=== PATIENT | male | born 1960 | race African-American/Black ===

== ENCOUNTER 2022-01-21 16:32 | Emergency (ER) | payer OTHER, SELFPAY ==
--- NOTE | ~2022-01-21 | CT_ITS ---
EXAMINATION: CT lumbar spine wo con DATE: 01/21/2022 19:52 INDICATION: low back pain, diff urinating . TECHNIQUE: Computed tomography (CT) of the lumbar spine was performed without intravenous contrast. A utomated exposure control and iterative reconstruction technique were employed. The dose-length produ ct was 333.53 mGy-cm. COMPARISON: None. FINDINGS: 5 nonrib-bearing lumbar-type vertebral bodies. Pedicles intact. No pars defect. Trace retro listhesis of L2 on L3. 4 mm anterolisthesis of L4 on L5. Multilevel degenerative disc disease, severe at T11-12, L2-3, and L3-4. Multilevel severe lower lumbar facet arthropathy. Severe central canal st enosis at L4-5. Mild anterior wedge deformities of the lower thoracic and upper lumbar vertebral bodi es, presumably congenital. IMPRESSION: No acute fracture or traumatic malalignment in the lumbar spine. Chronic and degenerative findings de tailed above. Reviewed, dictated and finalized at location K. IMPRESSION: No acute fracture or traumatic malalignment in the lumbar spine. Chronic and de generative findings detailed above.
[2022-01-21 17:02] VITALS: BP 146/95; PULSE 69; RESP 16; TEMP 36.9; O2SAT 100
--- NOTE | 2022-01-21 19:38 | ED.BACK ---
HPI - Back Pain/Injury General Chief Complaint: Back Pain/Injury Stated Complaint: back pain Time Seen by Provider: 01/21/22 19:22 Source: patient Mode of arrival: ambulatory Limitations: no limitations History of Present Illness HPI Narrative: Presents complaints of low back pain with bilateral sciatica that has persisted for over 1 week. States initially started with low back pain with right-sided sciatica. Was evaluated by his primary care provider and given Medrol Dosepak and Flexeril. States developed left sciatica as well as continued right sciatica so called primary care provider and was given hydrocodone. States today he developed difficulty starting and maintaining urinary stream called primary care provider and was sent to the ER for further evaluation. Denies numbness to groin, difficulty or change with BM. Otherwise denies fever, chills or other problems or complaints at this time Related Data Allergies Allergy/AdvReac Type Severity Reaction Status Date / Time No Known Allergies Allergy Unverified 03/24/18 07:32 Review of Systems Review of Systems: CONSTITUTIONAL: Denies fever, chills, or sweats. EYES: Denies visual changes, redness, or discharge. ENT: Denies rhinorrhea, congestion, sore throat, or otalgia. CARDIOVASCULAR: Denies chest pain, palpitations, or edema. RESPIRATORY: Denies cough or dyspnea. GASTROINTESTINAL: Denies abdominal pain, nausea, vomiting, or diarrhea. GENITOURINARY: Denies dysuria or hematuria. SKIN: Denies rash or itching. MUSCULOSKELETAL: Low back pain with bilateral sciatica. joint pain, or myalgia. NEUROLOGIC: Denies headache, numbness, or weakness. PSYCHIATRIC: Denies anxiety or depression. Exam Narrative: GENERAL: Well-appearing, well-nourished, and in no acute distress. Walking with stooped over gait. HEAD: Normocephalic, atraumatic. EYES: PERRLA and EOMI. ENT: Nares clear, no rhinorrhea or epistaxis. Mucous membranes moist. NECK: Supple. CHEST: Clear to auscultation. No respiratory distress. HEART: Regular rate and rhythm. No murmur heard. Normal peripheral pulses. ABDOMEN: Soft, nontender, nondistended, normal active bowel sounds. EXTREMITIES: Normal range of motion. No edema. Musculoskeletal: Tender to palpation low back and bilateral SI joints. Strength intact to lower extremities. SKIN: Warm, dry, no rash. NEURO: No focal deficits. Alert and oriented x3. PSYCH: Normal mood and affect. Course Vital Signs Vital signs: Vital Signs Temperature 36.9 C 01/21/22 17:02 Pulse Rate 69 01/21/22 17:02 Respiratory Rate 16 01/21/22 17:02 Blood Pressure 146/95 H 01/21/22 17:02 Pulse Oximetry 100 01/21/22 17:02 Temperature 36.9 C 01/21/22 17:02 Pulse Rate 69 01/21/22 17:02 Respiratory Rate 16 01/21/22 17:02 Blood Pressure 146/95 H 01/21/22 17:02 Pulse Oximetry 100 01/21/22 17:02 MDM - Back Pain/Injury MDM Narrative Medical decision making narrative: Bladder scan performed by nursing staff with no urinary retention. Discussed CT results with pt and need for F/U with PCP for further evaluation. Lab Data Result diagrams: 01/21/22 20:08 01/21/22 20:08 Labs: Lab Results 01/21/22 01/21/22 01/21/22 Range/Units 20:08 20:08 20:19 WBC 5.9 (4.5-10.0) K/mm3 RBC 5.57 (4.6-6.20) M/mm3 Hgb 15.0 (14.0-18.0) g/dL Hct 47.0 (42.0-52.0) % MCV 84.4 (80-100) fl MCH 26.9 (26-34) pg MCHC 31.9 L (32-36) g/dl RDW 14.1 (11.5-14.5) % Plt Count 225 (150-375) k/mm3 MPV 9.3 (7.4-10.4) fl Immature Gran % (Auto) 0.3 (0-0.5) % Neut % (Auto) 54.9 (45.5-73.1) % Lymph % (Auto) 28.1 (18.3-44.2) % [place] % (Auto) 9.7 H (2.6-8.5) % Eos % (Auto) 6.5 H (0-4.4) % Baso % (Auto) 0.5 (0.2-1.2) % Lymph # (Auto) 1.65 (0.9-3.2) K/mm3 [place] # (Auto) 0.6 (0.1-0.6) K/mm3 Eos # (Auto) 0.4 H (0-0.3) K/mm3 Baso # (Auto) 0.0 (0.0-0.1) K/mm3 Abs Immat
[2022-01-21 20:14] LABS: Basophils Percent Auto 0.5 % (0.2-1.2); Eosinophils Absolute Auto 0.4 K/mm3 (0-0.3); Eosinophils Percent Auto 6.5 % (0-4.4); Immature Granulocyte Absolute 0.02 K/mm3 (0.00-0.031); Immature Granulocyte Percent A 0.3 % (0-0.5); Lymphocytes Absolute Auto 1.65 K/mm3 (0.9-3.2); Lymphocytes Percent Auto 28.1 % (18.3-44.2); Mean Corpuscular HGB Conc 31.9 g/dl (32-36); Mean Corpuscular Hemoglobin 26.9 pg (26-34); Mean Corpuscular Volume 84.4 fl (80-100); Mean Platelet Volume 9.3 fl (7.4-10.4); Monocytes Absolute Auto 0.6 K/mm3 (0.1-0.6); Monocytes Percent Auto 9.7 % (2.6-8.5); Neutrophils Absolute Auto 3.2 K/mm3 (1.3-6.7); Neutrophils Percent Auto 54.9 % (45.5-73.1); Platelet Count Result 225 k/mm3 (150-375); Red Blood Count 5.57 M/mm3 (4.6-6.20); Red Cell Distribution Width 14.1 % (11.5-14.5); White Blood Count 5.9 K/mm3 (4.5-10.0)
[2022-01-21 20:26] LABS: Add Urine Microscopic? NO; Appearance Urine Clear (Clear); Bilirubin Urine Negative (Negative); Blood Urine Negative (Negative); Color Urine Yellow (Yellow); Glucose Urine UA Negative (Negative); Ketones Urine Negative (Negative); Leukocyte Esterase Ur Negative LEU/UL (Negative); Nitrate Urine Negative (Negative); Protein Urine Negative (Negative); Specific Grav Ur 1.021 (1.001-1.035); Urobilinogen Urine Negative mg/dL (<2.0)
[2022-01-21 20:26] LABS: Alanine Aminotransferase 20 U/L (6-50); Albumin Level 4.6 g/dL (3.5-5.1); Alkaline Phosphatase 47 U/L (38-126); Anion Gap 6 mmol/L (8-16); Aspartate Amino Transferase 29 U/L (17-59); Bilirubin,Total 0.4 mg/dL (0.2-1.3); Blood Urea Nitrogen 21 mg/dL (9-20); Calcium 9.4 mg/dL (8.4-10.2); Carbon Dioxide 33 mmol/L (22-30); Chloride 98 mmol/L (98-107); Estimated CRCL calculation 68 ml/min; Estimated Glomerular Filt Rate > 60; Glucose 98 mg/dL (65-110); Potassium 4.3 mmol/L (3.4-5.0); Sodium 137 mmol/L (137-145)
[2022-01-21] MEDS: predniSONE 20 MG TABLET 60 MG PO (22:37)
[2022-01-21 22:39] VITALS: PULSE 88; RESP 18; O2SAT 96
== END 2022-01-21 22:41 | disposition home or self-care (01) ==
PROVIDERS: Nurse Practitioner; Emergency Provider Preventive Medicine Aerospace Medicine; PCP Nurse Practitioner Adult Health
DX: M54.16 Radiculopathy, lumbar region (principal)
CPT/HCPCS: 36415; 72131; 80053; 81003; 85025; 99284; J7512

== ENCOUNTER 2022-02-18 11:56 | Outpatient (CLI) | payer OTHER, SELFPAY ==
--- NOTE | ~2022-02-18 | XR_ITS ---
XR chest 2V DATE: 02/18/2022 12:24 INDICATION: Nicotine dependence TECHNIQUE: 2 views COMPARISON: None FINDINGS: Bilateral hyperinflation with increased retrosternal airspace and some flattening the diaph ragm, consistent with COPD. No pulmonary infiltrate or consolidation, pleural effusion or pulmonary v ascular congestion or pneumothorax. Normal heart size. No hilar or mediastinal enlargement. Diffuse idiopathic skeletal hyperostosis and mild dextro scoliosis of the thoracic spine. IMPRESSION: Bilateral hyperinflation, suggesting COPD Otherwise no active cardiopulmonary disease Diffuse idiopathic skeletal hyperostosis of the thoracic spine Reviewed, dictated and finalized at location A. 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
== END 2022-02-18 11:57 | disposition home or self-care (01) ==
PROVIDERS: PCP Nurse Practitioner Adult Health; Visit Provider Family Medicine
DX: Z87.891 Personal history of nicotine dependence (principal); R91.8 Other nonspecific abnormal finding of lung field; M48.14 Ankylosing hyperostosis [Forestier], thoracic region
CPT/HCPCS: 71046

== ENCOUNTER 2023-03-09 03:15 | Day surgery (SDC) | payer OTHER, SELFPAY ==
[2023-02-22 11:10] VITALS: BMI 24.3
--- NOTE | 2023-03-05 11:59 | SUR.PREOP ---
Patient called regarding upcoming procedure. Reviewed preop instructions, appointment times, and procedure prep.
[2023-03-09 10:36] VITALS: BP 133/82; PULSE 74; RESP 17; TEMP 36.3; O2SAT 97; BMI 23.4
--- NOTE | 2023-03-09 10:49 | P.PNAN_ITS ---
Anes - Initial Pre Proc Eval Procedure: Operation Date: 03/09/23 11:30 Proposed Procedures p Colonoscopy - Satish Shore MD Date/Time: 03/09/23 10:49 Surgeon: Satish Shore MD Pre Op Diagnosis: personal hx of colon polyps Patient Data Age: 62 Gender: M Height: 1.68 m Weight: 65.8 kg Last Vital Signs Temp 97.4 F L 03/09/23 10:36 Pulse 74 03/09/23 10:36 Resp 17 03/09/23 10:36 BP 133/82 03/09/23 10:36 Pulse Ox 97 03/09/23 10:36 O2 Del Method Room Air 03/09/23 10:36 Allergies Allergy/AdvReac Type Severity Reaction Status Date / Time No Known Allergies Allergy Verified 03/09/23 10:35 Home Medications Medication Instructions Recorded Confirmed Type ibuprofen 800 mg tablet 800 mg PO DAILY PRN Pain 02/22/23 03/09/23 History metformin 500 mg tablet,extended 500 mg PO DAILY 02/22/23 03/09/23 History release 24 hr Patient hx anesthesia problems: none Family hx anesthesia problems: none Results Review: All pre-operative results and documents have been reviewed as part of the pre- operative evaluation. [facility] Past Medical History Medical History (Updated 03/09/23 @ 11:01 by Satish Shore MD) Colon polyp Social History Social History Smoking status: Former smoker Tobacco type: cigarettes Alcohol intake: current Drinks per week: 5 Alcohol use details: wine Substance use type: does not use Living arrangements: with family Spiritual care concerns: No Anes - Eval Final PreProcedure Day of Procedure 03/09/23 10:49 Patient weight: normal Heart: regular rate and rhythm Lungs: clear to auscultation Airway: Mallampati scale class II Neurological: alert and oriented Last oral intake: >/= 8 hours ASA classification: II Emergent: no Anesthetic plan: proceed Anesthesia type and monitoring: general GIVS and standard monitoring Results Review: All pre-operative results and documents have been reviewed as part of the pre- operative evaluation. Informed Consent: The patient's anesthetic plan and its attendant risks and benefits were discus sed with the patient/family/POA. Questions were solicited and answers provided to the satisfaction of the patient/family/POA.
[2023-03-09] MEDS: LACTATED RINGERS 1,000 ML 150 ML IV CONT (10:54)
[2023-03-09] MEDS: DEXTROSE 50% 25 GM/50 ML SYRINGE IV PUSH (10:58)
--- NOTE | 2023-03-09 11:00 | SUR.PREOP ---
Blood sugar at 69. Per Dr. Low give half an amp of 50% dextrose. 12.5g.
--- NOTE | 2023-03-09 11:01 | P.HP_ITS ---
History of Present Illness History of Present Illness Consent: Risks, benefits, and alternatives have been discussed and questions answered. Patient agrees to proceed with procedure. Chief complaint: personal hx of colon polyps Narrative: Paramjit Pablo is a 62 year old male with colon polyp 5 years ago Review of Systems Constitutional: Constitutional: Denies headache(s) and Denies weakness Eyes: Eyes: Denies blurry vision ENT: Reports Normal hearing present, Denies headache(s) and Denies neck pain Cardiovascular: Cardiovascular: Denies chest pain and Denies dyspnea Respiratory: Respiratory: Denies dyspnea Gastrointestinal: Gastrointestinal: Reports no additional gastrointestinal complaints Genitourinary: Genitourinary: Denies dysuria Musculoskeletal: Musculoskeletal: Denies neck pain Integumentary/Breasts: Skin/Breast: Denies dry skin Neurologic: Reports Normal hearing present, Denies headache(s) and Denies weakness Psychiatric: Psychiatric: Denies anxiety Endocrine: Endocrine: Denies change in body appearance Hematologic/Lymphatic: Hematologic/Lymphatic: Denies easy bleeding Allergic/Immunologic: Allergic/Immunologic: Denies urticaria PMF Past Medical History Medical History (Updated 03/09/23 @ 11:01 by Satish Shore MD) Colon polyp Social History Social History Smoking status: Former smoker Tobacco type: cigarettes Alcohol intake: current Drinks per week: 5 Alcohol use details: wine Substance use type: does not use Living arrangements: with family Spiritual care concerns: No Meds Home Medications and Allergies Home Medications Medication Instructions Recorded Confirmed Type ibuprofen 800 mg tablet 800 mg PO DAILY PRN Pain 02/22/23 03/09/23 History metformin 500 mg tablet,extended 500 mg PO DAILY 02/22/23 03/09/23 History release 24 hr Allergies Allergy/AdvReac Type Severity Reaction Status Date / Time No Known Allergies Allergy Verified 03/09/23 10:35 Vital Signs Vital Signs - 24 hr 03/09/23 10:36 Temperature 97.4 F L Pulse Rate 74 Respiratory Rate 17 Blood Pressure 133/82 Pulse Oximetry 97 Oxygen Delivery Room Air Exam Const: General: comfortable and no acute distress HENMT: Face/Nose/Sinus: Normal nares present Eyes: General: appearance normal, both eyes and all related structures Neck: Neck: no JVD Resp: Auscultation: clear to auscultation bilaterally Cardio: Rate: regular rate Rhythm: regular rhythm GI: Inspection: non-distended GI Palp: Yes Soft to palpation Skin: General skin exam: normal color Neuro: General: gait normal Speech: normal speech Extrem: General: normal to inspection Psych: Mental Status: mental status grossly normal Assessment and Plan Assessment and plan (1) Colon polyp: Code(s): K63.5 - Polyp of colon Status: Acute Assessment and Plan: colonoscopy
[2023-03-09 11:03] LABS: Glucose Point of Care 69 mg/dl (65-105)
[2023-03-09 11:18] VITALS: BP 109/70; PULSE 72; RESP 16; O2SAT 98
[2023-03-09 11:25] LABS: Glucose Point of Care 157 mg/dl (65-105)
[2023-03-09 11:28] VITALS: BP 125/81; PULSE 65; RESP 18; O2SAT 99
[2023-03-09 11:38] VITALS: BP 132/78; PULSE 60; RESP 20; O2SAT 99
== END 2023-03-09 11:43 | disposition home or self-care (01) ==
PROVIDERS: PCP Family Medicine; Visit Provider Internal Medicine Gastroenterology
PROC: 0DJD8ZZ Inspection of Lower Intestinal Tract, Via Natural or Artificial Opening Endoscopic (ICD-10-PCS; CPT 45378; principal; 2023-03-09 11:30)
DX: Z12.11 Encounter for screening for malignant neoplasm of colon (principal); K64.8 Other hemorrhoids; K57.30 Diverticulosis of large intestine without perforation or abscess without bleeding; Z79.84 Long term (current) use of oral hypoglycemic drugs; Z87.891 Personal history of nicotine dependence; Z86.010 Personal history of colon polyps
CPT/HCPCS: 45378; 82948; J2704; J7120